=== PATIENT | male | born 1950 | race Caucasian/White ===

== ENCOUNTER 2017-04-02 08:55 | Day surgery (SDC) | payer BC ==
[2017-03-28 10:15] VITALS: BMI 27.1
[2017-04-02 09:15] VITALS: TEMP 97.8
[2017-04-02 09:49] VITALS: BP 101/58; PULSE 56
== END 2017-04-02 10:25 | disposition home or self-care (01) ==
LOC: FASU-ENDO 08:55
PROVIDERS: ATTEND Internal Medicine Gastroenterology
PROC: 0DJD8ZZ Inspection of Lower Intestinal Tract, Via Natural or Artificial Opening Endoscopic (ICD-10-PCS; principal; 2017-04-02 09:22)
DX: Z12.11 Encounter for screening for malignant neoplasm of colon (principal)